=== PATIENT | male | born 1995 | race Caucasian/White ===

== ENCOUNTER 2024-05-28 15:27 | Emergency (ER) | payer SELFPAY ==
[2024-05-28 15:38] VITALS: BP 134/91; PULSE 95; TEMP 37.4; O2SAT 98; BMI 18.8
--- NOTE | 2024-05-28 15:45 | XR_ITS ---
The [address] [address] Patient Name: GERALDO MOLINA MRN: [id number] date: 1995 Sex: M Assigned Patient Location: ED.MAIN Current Patient Location: ER Accession/Order Number: [id number] Exam Date: 05/28/2024 16:15 Report Date: 05/28/2024 16:59 At the request of: CYNTHIA HENRIQUEZ Procedure: XR ribs RT min 3V w CXR1V Ribs EXAM: XR ribs RT min 3V w CXR1V HISTORY: pain COMPARISON: None. TECHNIQUE: Chest, single view. Right rib series with 7 images obtained. FINDINGS: Lungs/pleura: No consolidation, effusion, or pneumothorax. Bones: No acute abnormality identified. XR/XR ribs RT min 3V w CXR1V IMPRESSION: No acute displaced rib fracture. Electronically authenticated by: INDER FOX Date: 05/28/2024 16:59
--- NOTE | 2024-05-28 15:49 | ED_ITS ---
HPI HPI - General Adult General Chief complaint: Shortness of Breath/Dyspnea Stated complaint: RIB PAIN Time Seen by Provider: 05/28/24 15:34 Source: patient Mode of arrival: Wheelchair Limitations: no limitations History of Present Illness HPI narrative: Patient presents to ED complaining of right sided rib pain. He said in March he tripped over his dog and caught himself on the handrail into his left side of his ribs. He had a chest x-ray since then and he said his ribs were cracked. He said since then he has been doing okay but recently he feels like the pain is shifting over to the right side of the ribs and he feels like the right side of the ribs might be out of place. He said deep breath cough or palpation hurts the right ribs. No new injury. No abdominal pain no nausea vomiting. Does have a low-grade fever here at 99.4. Oxygen saturations normal at 98%. No other complaints at this time Related Data Allergies Allergy/AdvReac Type Severity Reaction Status Date / Time Penicillins AdvReac Intermediate Rash Verified 05/28/24 15:42 Opioid HPI Opioid Management Most Recent Opioid Data: Last Pain Scale 10 05/28/24 16:28 05/28/24 Last OCT Pain Assessment 05/28/24 16:28 Review of Systems ROS Status of ROS 10 or more systems reviewed and unremark able except as noted in history and below Exam Narrative Exam Narrative: General: alert, no acute distress Cardiovascular: regular rate and rhythm, normal peripheral perfusion. Respiratory: Lungs CTA, respirations non labored. Extremities: no deformity, no trauma. Neurological: oriented x 4, LOC appropriate for age. Tenderness to palpation in the right lower ribs Constitutional Vital Signs, click to edit/add: Last Vital Signs Temp 99.4 F 05/28/24 15:38 Pulse 95 H 05/28/24 15:38 Resp 18 05/28/24 15:38 BP 134/91 05/28/24 15:38 Pulse Ox 98 05/28/24 15:38 O2 Del Method Room Air 05/28/24 15:38 Course Vital Signs Vital signs: Vital Signs Temperature 99.4 F 05/28/24 15:38 Pulse Rate 95 H 05/28/24 15:38 Respiratory Rate 18 05/28/24 15:38 Blood Pressure 134/91 05/28/24 15:38 Pulse Oximetry 98 05/28/24 15:38 Oxygen Delivery Method Room Air 05/28/24 15:38 Temperature 99.4 F 05/28/24 15:38 Pulse Rate 95 H 05/28/24 15:38 Respiratory Rate 18 05/28/24 15:38 Blood Pressure 134/91 05/28/24 15:38 Pulse Oximetry 98 05/28/24 15:38 Oxygen Delivery Method Room Air 05/28/24 15:38 Medical Decision Making MDM Narrative Medical decision making narrative: Patient's chest x-ray is clear. No acute fracture no pneumonia. No other acute findings. Take Tylenol Motrin for pain at home. Follow-up with family doctor return to ED if worsening symptoms. Patient and family are comfortable care plan for home Differential Diagnosis Differential Diagnosis: Muscle strain, brain, rib fracture, rib contusion, pneumonia Imaging Data Chest x-ray: Radiologist's impression: ITS Impressions Ribs X-Ray 05/28/24 15:45 IMPRESSION: No acute displaced rib fracture. Electronically authenticated by: INDER FOX Date: 05/28/2024 16:59 Discharge Plan Discharge Chief Complaint: Shortness of Breath/Dyspnea Clinical Impression: Pain in rib Patient Disposition: Home, Self-Care Time of Disposition Decision: 17:05 Condition: Good Mode of Transportation: Private Vehicle Print Language: Kinyarwanda Instructions: Chest Wall Pain (ED) Referrals: Physician,Non-Staff, MD [Primary Care Provider] - 1 week Discharge Date/Time: 05/28/24 17:32
[2024-05-28] MEDS: KETOROLAC TROMETHAMINE 60 MG/2 ML VIAL IM (16:28)
== END 2024-05-28 17:32 | disposition home or self-care (01) ==
PROVIDERS: Emergency Provider Emergency Medicine
DX: R07.81 Pleurodynia (principal)
CPT/HCPCS: 71101; 96372; 99284; J1885